=== PATIENT | male | born 1935 | race Caucasian/White ===

== ENCOUNTER 2017-06-14 07:28 | Day surgery (SDC) | payer MEDICARE, OTHER ==
[~2017-06-14] VITALS: Ht 170.2 cm; Wt 87.7 kg
[2017-06-14] MEDS ORDERED: ASPIRIN 81M81 MG/TA2 PO (07:47)
[2017-06-14] MEDS ORDERED: FLONASEALLERGY NS (07:48)
[2017-06-14] MEDS ORDERED: ZOCOR 20MG20 MG PO (07:48)
[2017-06-14] MEDS ORDERED: BENADRYL25 M2 PO (07:49)
[2017-06-14] MEDS ORDERED: HCTZ 25MG TAB25 MG PO (07:50)
[2017-06-14] MEDS ORDERED: BETIMOL 5 ML5 ML OD (07:50)
[2017-06-14] MEDS ORDERED: ALEVE 220MG220 MG PO (07:51)
[2017-06-14] MEDS ORDERED: MEGA MULTIVITAM1 TAB PO (07:51)
[2017-06-14 08:15] VITALS: BP 150/76; PULSE 61; TEMP 97.3
[2017-06-14 09:27] VITALS: BP 130/68; PULSE 61; TEMP 97.6
[2017-06-14 09:45] VITALS: BP 143/74; PULSE 58
[2017-06-14 10:00] VITALS: BP 125/74; PULSE 59
[2017-06-14 12:46] VITALS: BP 132/70; PULSE 60
== END 2017-06-14 10:15 | disposition home or self-care (01) ==
LOC: SDCO 07:28
DX: Z12.11 Encounter for screening for malignant neoplasm of colon (principal); Z86.010 Personal history of colon polyps; D12.3 Benign neoplasm of transverse colon; D12.5 Benign neoplasm of sigmoid colon; K63.5 Polyp of colon; K63.89 Other specified diseases of intestine; K57.30 Diverticulosis of large intestine without perforation or abscess without bleeding; K64.4 Residual hemorrhoidal skin tags; Z85.46 Personal history of malignant neoplasm of prostate; E78.00 Pure hypercholesterolemia, unspecified; I10 Essential (primary) hypertension
CPT/HCPCS: OP; J2250; J3010; J7030

== ENCOUNTER 2018-03-21 07:17 | Emergency (ER) | payer MEDICARE, OTHER ==
[~2018-03-21] VITALS: Ht 170.2 cm; Wt 87.7 kg
[~2018-03-21 07:17] MED LIST: ALEVE 220MG220 MG PO; ASPIRIN 81M81 MG/TA2 PO; BENADRYL25 M2 PO; BETIMOL 5 ML5 ML OD; FLONASEALLERGY NS; HCTZ 25MG TAB25 MG PO; MEGA MULTIVITAM1 TAB PO; ZOCOR 20MG20 MG PO
[2018-03-21 07:21] VITALS: TEMP 97.7
[2018-03-21 07:44] LABS: COLLECTION METHOD CLEAN CATCH
[2018-03-21 07:48] LABS: BASO # 0.1 (0.0-0.2); BASO % 0.8 % (0.0-2.0); EOS # 0.4 (0.0-0.7); EOS % 5.2 % (0-4.0); GRAN # 4.4 (1.4-6.5); GRAN % 52.7 % (42.2-75.2); HEMATOCRIT 41.2 % (42.0-52.0); HEMOGLOBIN 14.1 g/dl (13.5-18.0); LYMPH # 2.6 (1.2-3.4); LYMPH % 31.6 % (20.0-51.0); MEAN CELL VOLUME 90 fl (80.0-100.0); MEAN CORPUSCULAR HEMOGLOBIN 31 pg (27.0-31.0); MEAN CORPUSCULAR HGB CONC 34 g/dl (33.0-37.0); MEAN PLATELET VOLUME 11.5 fl (7.4-10.4); MONO # 0.8 (0.1-0.6); MONO % 9.5 % (1.7-9.3); PLATELET COUNT 91 K/mm3 (130-400); REDCELL DISTRIBUTION WIDTH-CV 12.2 % (11.5-14.5)
[2018-03-21 07:59] LABS: ALBUMIN 3.9 gm/dL (3.5-5.0); BILIRUBIN,TOTAL 0.5 mg/dL (0.0-1.0); CALCIUM 9.1 mg/dL (8.4-10.2); CREATININE, serum 0.87 mg/dL (0.66-1.25); POTASSIUM 3.7 mmol/L (3.4-5.0)
[2018-03-21 08:01] LABS: PROTHROMBIN TIME 11.3 SECONDS (9.7-12.8)
[2018-03-21 08:04] LABS: PARTIAL THROMBOPLASTIN TIME 31.6 SECONDS (26.0-37.0)
[2018-03-21] MEDS ORDERED: ZOCOR 40MG40 MG PO (08:06)
[2018-03-21] MEDS ORDERED: TIMOPTIC 0.25%-10 OU (08:06)
[2018-03-21 08:10] LABS: MUCOUS Present /lpf; PH 5 (5-8); SQUAMOUS EPITHELIAL None Seen /hpf; URINE APPEARANCE Clear; URINE BACTERIA None Seen /hpf; URINE BILIRUBIN Negative (NEGATIVE); URINE BLOOD 3+ (NEGATIVE); URINE COLOR Yellow; URINE GLUCOSE Negative (NEGATIVE); URINE KETONE Negative (NEGATIVE); URINE LEUKOCYTE ESTERASE Negative (NEGATIVE); URINE NITRATE Negative (NEGATIVE); URINE PROTEIN(semi-quant) 2+ (NEGATIVE); URINE RBC >50 /hpf; URINE UROBILINOGEN Negative (NEGATIVE)
[2018-03-21] MEDS ORDERED: MACROBID 1100 MG/CAP PO (08:32)
[2018-03-21 09:06] VITALS: BP 153/76; PULSE 62
== END 2018-03-21 09:06 | disposition home or self-care (01) ==
LOC: COL.ER 07:17
PROVIDERS: Emergency Medicine
DX: R31.9 Hematuria, unspecified (principal); Z85.46 Personal history of malignant neoplasm of prostate; Z90.79 Acquired absence of other genital organ(s); Z79.82 Long term (current) use of aspirin
CPT/HCPCS: J7040

== ENCOUNTER 2019-03-14 16:06 | Inpatient (IN) | payer MEDICARE, OTHER ==
[~2019-03-14] VITALS: Ht 167.6 cm; Wt 88.1 kg
[~2019-03-14 16:06] MED LIST changes: +MACROBID 1100 MG/CAP PO; +TIMOPTIC 0.25%-10 OD
[2019-03-14 17:43] LABS: BASO # 0.1 (0.0-0.2); BASO % 0.3 % (0.0-2.0); EOS % 0.2 % (0-4.0); GRAN # 14.1 (1.4-6.5); GRAN % 86.1 % (42.2-75.2); HEMATOCRIT 41.3 % (42.0-52.0); HEMOGLOBIN 14.5 g/dl (13.5-18.0); LYMPH % 6.3 % (20.0-51.0); MEAN CELL VOLUME 90 fl (80.0-100.0); MEAN CORPUSCULAR HEMOGLOBIN 32 pg (27.0-31.0); MEAN CORPUSCULAR HGB CONC 35 g/dl (33.0-37.0); MEAN PLATELET VOLUME 12.8 fl (7.4-10.4); MONO # 1.1 (0.1-0.6); MONO % 6.6 % (1.7-9.3); PLATELET COUNT 88 K/mm3 (130-400); RED BLOOD COUNT 4.61 M/mm3 (4.20-5.60); REDCELL DISTRIBUTION WIDTH-CV 12.3 % (11.5-14.5)
[2019-03-14 17:49] LABS: ALANINE AMINOTRANSFERASE 17 U/L (21-72); ALBUMIN 4.1 gm/dL (3.5-5.0); ALKALINE PHOSPHATASE 58 U/L (50-136); ANION GAP 10 mmol/L (7-16); AST,SGOT 31 U/L (15-37); BLOOD UREA NITROGEN 26 mg/dL (9-20); CALCIUM 9.4 mg/dL (8.4-10.2); CARBON DIOXIDE 27 mmol/L (22-30); CHLORIDE 99 mmol/L (98-107); CREATININE, serum 0.91 (0.66-1.25); GLUCOSE 117 mg/dL (74-106); POTASSIUM 3.8 mmol/L (3.4-5.0); SODIUM 136 mmol/L (137-145); TOTAL PROTEIN 7.2 gm/dL (6.4-8.2)
[2019-03-14] MEDS ORDERED: PROAIR HFA0.09 MG/AC IH (18:13)
[2019-03-14] MEDS ORDERED: B COMPLEX #11 TAB PO (18:14)
[2019-03-14] MEDS ORDERED: MASON NATURAL2000 IU PO (18:15)
[2019-03-14] MEDS ORDERED: BENADRYL25 M2 PO (18:15)
[2019-03-14] MEDS ORDERED: HCTZ 25MG TAB25 MG PO (18:16)
[2019-03-14] MEDS ORDERED: EPA FISH OIL1 SGL PO (18:16)
[2019-03-14] MEDS ORDERED: FLONASEALLERGY NS (18:16)
[2019-03-14] MEDS ORDERED: ALEVE 220MG220 MG PO (18:17)
[2019-03-14 18:18] LABS: TROPONIN-I < 0.012 ng/mL (0.000-0.035)
[2019-03-14 18:45] LABS: COLLECTION METHOD CLEAN CATCH
[2019-03-14 18:50] LABS: MUCOUS Present /lpf; PH 5 (5-8); SQUAMOUS EPITHELIAL None Seen /hpf; URINE APPEARANCE Clear; URINE BACTERIA None Seen /hpf; URINE BILIRUBIN Negative (NEGATIVE); URINE BLOOD Negative (NEGATIVE); URINE COLOR Amber; URINE GLUCOSE Negative (NEGATIVE); URINE KETONE Negative (NEGATIVE); URINE LEUKOCYTE ESTERASE Negative (NEGATIVE); URINE NITRATE Negative (NEGATIVE); URINE PROTEIN(semi-quant) 2+ (NEGATIVE); URINE UROBILINOGEN Negative (NEGATIVE)
[2019-03-14] MEDS ORDERED: DOXYCYCLINE 10100 MG PO (20:57)
[2019-03-15] VITALS (7 sets, daily range): BP systolic 125–137; BP diastolic 43–49; PULSE 71–79; TEMP 101.3–102.5
[2019-03-15] MEDS ORDERED: BENADRYL25 M2 PO (16:39)
--- NOTE | 2019-03-15 18:04 | NUR ---
Pt direct admit from home to Rm 314 per w/c with dx of fever, dehydration. Spouse at side. Wears bilat hearing aids but still very [place]. Assessment completed by TELMA Vail. IV started in L FA with #20 on 1st attempt. LR infuses at 500mL/hr. Call light within reach. Explained how to call for his meals. Dr Manuel in to assess pt.
[2019-03-15 18:34] LABS: MEAN CELL VOLUME 91 fl (80.0-100.0); MEAN CORPUSCULAR HGB CONC 34 g/dl (33.0-37.0); MEAN PLATELET VOLUME 12.2 fl (7.4-10.4); PLATELET COUNT 71 K/mm3 (130-400); RED BLOOD COUNT 4.01 M/mm3 (4.20-5.60); REDCELL DISTRIBUTION WIDTH-CV 12.5 % (11.5-14.5)
[2019-03-15 18:35] LABS: ALBUMIN 3.3 gm/dL (3.5-5.0); BILIRUBIN UNCONJUGATED 0.7 mg/dL (0.0-1.1); BILIRUBIN,DIRECT 0.2 mg/dL (0.0-0.4); BILIRUBIN,TOTAL 0.9 mg/dL (0.0-1.0); CALCIUM 8.3 mg/dL (8.4-10.2); CREATININE, serum 1.26 (0.66-1.25); INR 1.5 (0.8-3.0); POTASSIUM 3.8 mmol/L (3.4-5.0); PROTHROMBIN TIME 18.3 SECONDS (9.7-12.8); TOTAL PROTEIN 6.2 gm/dL (6.4-8.2)
[2019-03-15 18:42] LABS: HEMATOCRIT 36.6 % (42.0-52.0); HEMOGLOBIN 12.4 g/dl (13.5-18.0); MEAN CORPUSCULAR HEMOGLOBIN 31 pg (27.0-31.0)
[2019-03-15 18:51] LABS: MAGNESIUM 1.8 mg/dL (1.6-2.3)
[2019-03-15 19:09] LABS: TROPONIN-I 0.04 ng/mL (0.000-0.035)
[2019-03-15 19:29] LABS: BAND 16 % (0-10); LYMPHOCYTE 2 % (20.0-51.0); NEUTROPHILS 81 % (42.0-75.2)
[2019-03-15 19:30] LABS: PLATELET ESTIMATE NORMAL (NORMAL)
--- NOTE | 2019-03-15 20:22 | NUR ---
Pt. laying in bed at this time. Pt. is A&OX3, assessment complete. IV to lt. forearm patent, IV fluids infusing per orders. Pt. denies pain. Pt. has continued to have a fever. Giving Tylenol per orders. Pt. denies further needs, call light within reach.
[2019-03-16] VITALS (8 sets, daily range): BP systolic 92–143; BP diastolic 33–64; PULSE 58–76; TEMP 98.1–99.1
--- NOTE | 2019-03-16 05:47 | NUR ---
Pt. slept well between distrubances. Pt. remains A&OX3. Pt. afebrile at this time. Vitals stable at this time. Pt. denies pain or other needs, call light within reach.
[2019-03-16 06:46] LABS: HEMOGLOBIN 11.8 g/dl (13.5-18.0); MEAN CELL VOLUME 92 fl (80.0-100.0); MEAN CORPUSCULAR HEMOGLOBIN 32 pg (27.0-31.0); MEAN CORPUSCULAR HGB CONC 34 g/dl (33.0-37.0); PLATELET COUNT 62 K/mm3 (130-400); RED BLOOD COUNT 3.74 M/mm3 (4.20-5.60); REDCELL DISTRIBUTION WIDTH-CV 12.5 % (11.5-14.5)
[2019-03-16 06:54] LABS: HEMATOCRIT 34.3 % (42.0-52.0)
[2019-03-16 07:01] LABS: ALBUMIN 2.8 gm/dL (3.5-5.0); BILIRUBIN,TOTAL 0.7 mg/dL (0.0-1.0); CALCIUM 7.9 mg/dL (8.4-10.2); CHOLESTEROL RISK RATIO 3.8; CREATININE, serum 1.26 (0.66-1.25); POTASSIUM 3.7 mmol/L (3.4-5.0); TOTAL PROTEIN 5.5 gm/dL (6.4-8.2)
[2019-03-16 07:21] LABS: BAND 50 % (0-10); DOHLE BODIES PRESENT; LYMPHOCYTE 8 % (20.0-51.0); NEUTROPHILS 36 % (42.0-75.2); PLATELET ESTIMATE DECREASED (NORMAL); TOXIC GRANULATION PRESENT
[2019-03-16 07:23] LABS: TROPONIN-I 0.039 ng/mL (0.000-0.035)
--- NOTE | 2019-03-16 09:15 | NUR ---
Pt lying down in bed, C/O light headedness when sitting up. Denies any pain. Afebrile since last night. Breathing even and unlabored. Denies any shortness of breath. at bedside. Medications administered and morning assessment completed. Denies any needs at this time. Will continue to monitor. Call light in reach.
--- NOTE | 2019-03-16 11:15 | NUR ---
Initial visit; Patient thanked [employer] for looking in on him and offering God's blessing.
--- NOTE | 2019-03-16 13:45 | NUR ---
PT LYING IN BED, EYES CLOSED BREATHING EVEN AND UNLABORED. DENIES ANY NEEDS AT THIS TIME.
--- NOTE | 2019-03-16 14:03 | NUR ---
SW attended clinical rounds to discuss discharge planning. Patient lives independenlty at home with his . Patient's PCP is Dr Price and he obtains prescriptions from [facility] [place]. Patient does not use any DME or home health servives. Patient does have a DPOA-HC. SW does not anticipate any discharge needs.
--- NOTE | 2019-03-16 18:40 | NUR ---
IV ANTIBIOTICS GIVEN. PT DENIES ANY FEVERS, PAIN OR SHORTNESS OF BREATH. DENIES ANY OTHER NEEDS.
--- NOTE | 2019-03-16 19:15 | NUR ---
Pt eating dinner, denies any pain. Report given to Layne HOLLIS.
--- NOTE | 2019-03-16 20:35 | NUR ---
PT RESTIING IN BED WITH HOB ELEVATED TO 15 DEGREE ANGLE. PT DENIES PAIN OR DISCOMFORT AND HAS NO NEEDS AT THIS TIME. CALL LIGHT WITHIN REACH.
--- NOTE | 2019-03-17 02:17 | NUR ---
UNEVENTFUL NIGHT, PT SLEEPING/RESTING WITH NO S/S OF PAIN OR DISCOMFORT NOTED. CALL LIGHT WITHIN REACH.
[2019-03-17 03:12] VITALS: BP 126/51; PULSE 56; TEMP 98.4
[2019-03-17 07:01] LABS: BASO % 0.3 % (0.0-2.0); EOS # 0.1 (0.0-0.7); EOS % 1.6 % (0-4.0); GRAN # 3.9 (1.4-6.5); GRAN % 62.2 % (42.2-75.2); HEMOGLOBIN 11.2 g/dl (13.5-18.0); LYMPH # 1.2 (1.2-3.4); MEAN CELL VOLUME 90 fl (80.0-100.0); MEAN CORPUSCULAR HEMOGLOBIN 32 pg (27.0-31.0); MEAN CORPUSCULAR HGB CONC 35 g/dl (33.0-37.0); MEAN PLATELET VOLUME 12.1 fl (7.4-10.4); MONO % 15.9 % (1.7-9.3); PLATELET COUNT 74 K/mm3 (130-400); RED BLOOD COUNT 3.56 M/mm3 (4.20-5.60); REDCELL DISTRIBUTION WIDTH-CV 12.4 % (11.5-14.5)
[2019-03-17 07:17] LABS: ALBUMIN 2.8 gm/dL (3.5-5.0); BILIRUBIN,TOTAL 0.4 mg/dL (0.0-1.0); CREATININE, serum 0.94 (0.66-1.25); POTASSIUM 3.4 mmol/L (3.4-5.0); TOTAL PROTEIN 5.6 gm/dL (6.4-8.2)
--- NOTE | 2019-03-17 07:19 | NUR ---
UNEVENTFUL NIGHT, SLEEPING/RESTING WITH NO S/S OF PAIN OR DISCOMFORT, GAVE REPORT TO BAMBI HOLLIS.
[2019-03-17 07:50] VITALS: BP 130/56; PULSE 57; TEMP 98
--- NOTE | 2019-03-17 08:00 | NUR ---
Pt sitting up in bed AOOX4, denies any light headedness or shortness of breath. Completed morning assessment. Breathing even and unlabored, breath sounds clear. Pt corrected his medications, only takes 1,000mg of fish oil daily, updated med rec. Pt has requested shower, IV on standby and site wrapped up. Pt steady and denies any dizziness. Will contiue to monitor.
[2019-03-17 09:42] LABS: LYME DISEASE ANTIBODIES Negative (Negative)
--- NOTE | 2019-03-17 10:45 | NUR ---
ALL DICHSARGE PAPERWORK GIVEN TO PT. ALL QUESTIONS ASKED AND ANSWERED. INT REMOVED, CATHETER TIP INTACT. NO REDNESS OR SWELLING NOTED. ESCORTED OUT VIA WHEELCHAIR BY VIA [facility] [place] STAFF.
== END 2019-03-17 11:00 | disposition home or self-care (01) | DRG 871 ==
LOC: COL.ER 16:06 → MEDICAL 03-15 16:20
PROVIDERS: Emergency Medicine; Internal Medicine Infectious Disease; ADMIT Hospitalist
DX: A41.9 Sepsis, unspecified organism (principal); I21.A1 Myocardial infarction type 2; N17.9 Acute kidney failure, unspecified; A93.8 Other specified arthropod-borne viral fevers; I10 Essential (primary) hypertension; E78.5 Hyperlipidemia, unspecified; H40.9 Unspecified glaucoma; D69.6 Thrombocytopenia, unspecified; D64.9 Anemia, unspecified; Z85.46 Personal history of malignant neoplasm of prostate; Z87.891 Personal history of nicotine dependence
CPT/HCPCS: 99222-AI; 99231-AI; 99239; J0696; J1650; J1885; J2405; J7030; J7120

== ENCOUNTER 2022-02-28 21:29 | Emergency (ER) | payer MEDICARE, OTHER ==
[~2022-02-28] VITALS: Ht 177.8 cm; Wt 90.9 kg
[~2022-02-28 21:29] MED LIST changes: +B COMPLEX #11 TAB PO; +DOXYCYCLINE 10100 MG PO; +EPA FISH OIL1 SGL PO; +MASON NATURAL2000 IU PO; +PROAIR HFA0.09 MG/AC IH
[2022-02-28 22:45] LABS: BASO # 0.1 K/mm3 (0.0-0.2); BASO % 0.7 % (0.0-2.0); EOS # 0.5 K/mm3 (0.0-0.7); EOS % 5.6 % (0.0-4.0); GRAN # 4.7 K/mm3 (1.4-6.5); GRAN % 57.5 % (42.2-75.2); HEMOGLOBIN 12.3 g/dl (13.5-18.0); LYMPH # 2.1 K/mm3 (1.2-3.4); MEAN CELL VOLUME 90 fl (80.0-100.0); MEAN CORPUSCULAR HEMOGLOBIN 31 pg (27-31); MEAN CORPUSCULAR HGB CONC 35 g/dl (33.0-37.0); MEAN PLATELET VOLUME 11.9 fl (7.4-10.4); MONO # 0.9 K/mm3 (0.1-0.6); MONO % 10.8 % (1.7-9.3); PLATELET COUNT 90 K/mm3 (130-400); RED BLOOD COUNT 3.92 M/mm3 (4.20-5.60); REDCELL DISTRIBUTION WIDTH-CV 12.5 % (11.5-14.5)
[2022-02-28 22:49] VITALS: TEMP 98.5
[2022-02-28 22:52] LABS: HEMATOCRIT 35.1 % (42.0-52.0)
[2022-02-28 23:00] LABS: ALBUMIN 3.7 gm/dL (3.4-4.8); BILIRUBIN,TOTAL 0.7 mg/dL (0.2-1.2); CALCIUM 9.1 mg/dL (8.4-10.2); POTASSIUM 3.4 mmol/L (3.5-4.5); TOTAL PROTEIN 6.2 gm/dL (6.2-8.1)
[2022-02-28 23:03] LABS: INR 1.2 (0.8-3.0); PROTHROMBIN TIME 13.3 SECONDS (9.7-12.8)
[2022-02-28 23:06] LABS: PARTIAL THROMBOPLASTIN TIME 29.5 SECONDS (26.0-37.0)
[2022-02-28 23:16] LABS: CREATININE, serum 0.94 mg/dL (0.72-1.25)
[2022-03-01 00:13] VITALS: BP 138/69; PULSE 58
== END 2022-03-01 00:13 | disposition short-term general hospital (02) ==
LOC: COL.ER 21:29
PROVIDERS: Personal Emergency Response Attendant
DX: S06.6X9A Traumatic subarachnoid hemorrhage with loss of consciousness of unspecified duration, initial encounter (principal); W18.30XA Fall on same level, unspecified, initial encounter
CPT/HCPCS: J2405

== ENCOUNTER 2022-04-30 09:00 | Day surgery (SDC) | payer MEDICARE, OTHER ==
[~2022-04-30] VITALS: Ht 177.8 cm; Wt 87.0 kg
[2022-04-30] MEDS ORDERED: NAPROSYN 2250 MG/TAB PO (09:34)
[2022-04-30] MEDS ORDERED: ZOCOR 80MG80 MG PO (09:34)
[2022-04-30] MEDS ORDERED: MIRALAX PA17 GM/Dose PO (09:34)
[2022-04-30] MEDS ORDERED: KRILL OIL 5001 EACH PO (09:35)
[2022-04-30] MEDS ORDERED: COLACE 100100 MG/CAP PO (09:35)
[2022-04-30] MEDS ORDERED: NATURAL MAGNES200 MG PO (09:35)
[2022-04-30] MEDS ORDERED: NATURAL IRON65 MG PO (09:36)
[2022-04-30 09:48] VITALS: BP 143/64; PULSE 46; TEMP 97.7
[2022-04-30] MEDS ORDERED: NORCO 325 MG-51 TAB PO (13:06)
[2022-04-30 13:15] VITALS: BP 123/62; PULSE 47; TEMP 97.1
[2022-04-30 13:30] VITALS: BP 148/64; PULSE 45
[2022-04-30 13:45] VITALS: BP 148/64; PULSE 45
--- NOTE | 2022-04-30 14:09 | NUR ---
1315: Patient arrived back into [facility] from [place]. Patient is drowsy but arousable to vocal stimulation. Vital signs stable on room air. Report received from TELMA Acosta and JAMES Whitman. Patient requesting blueberry muffins and water. at bedside. Denies pain or nausea. Call light left within reach. 1330: Patient vitally stable. Tolerating food and drink well. Denies pain or nausea. Patient requesting additional muffins. Patient alert and awake. 1345: Patient meets discharge criteria. Went through discharge instructions with patient and . Patient got dressed with assistance from . 1350: Escorted to patient entrance via wheelchair. Patient got into personal vehicle unassisted and left in the care of his .
== END 2022-04-30 14:10 | disposition home or self-care (01) ==
LOC: SDCO 09:00
DX: K40.90 Unilateral inguinal hernia, without obstruction or gangrene, not specified as recurrent (principal); Z79.899 Other long term (current) drug therapy; Z98.890 Other specified postprocedural states
CPT/HCPCS: C1781; J0690; J1100; J2704; J2795; J7120

== ENCOUNTER 2022-05-09 19:39 | Emergency (ER) | payer MEDICARE, OTHER ==
[~2022-05-09] VITALS: Ht 165.1 cm; Wt 84.1 kg
[~2022-05-09 19:39] MED LIST changes: +COLACE 100100 MG/CAP PO; +KRILL OIL 5001 EACH PO; +MIRALAX PA17 GM/Dose PO; +NAPROSYN 2250 MG/TAB PO; +NATURAL IRON65 MG PO; +NATURAL MAGNES200 MG PO; +NORCO 325 MG-51 TAB PO; +ZOCOR 80MG80 MG PO
[2022-05-09 19:40] VITALS: TEMP 97.6
[2022-05-09 20:09] LABS: BASO # 0.1 K/mm3 (0.0-0.2); BASO % 0.8 % (0.0-2.0); EOS # 0.5 K/mm3 (0.0-0.7); EOS % 5.8 % (0.0-4.0); GRAN # 5.2 K/mm3 (1.4-6.5); GRAN % 57.5 % (42.2-75.2); HEMOGLOBIN 12.3 g/dl (13.5-18.0); LYMPH # 2.2 K/mm3 (1.2-3.4); LYMPH % 24.4 % (20.0-51.0); MEAN CELL VOLUME 91 fl (80.0-100.0); MEAN CORPUSCULAR HEMOGLOBIN 32 pg (27-31); MEAN CORPUSCULAR HGB CONC 35 g/dl (33.0-37.0); MEAN PLATELET VOLUME 11.1 fl (7.4-10.4); MONO % 10.9 % (1.7-9.3); PLATELET COUNT 120 K/mm3 (130-400); REDCELL DISTRIBUTION WIDTH-CV 12.6 % (11.5-14.5)
[2022-05-09 20:10] LABS: HEMATOCRIT 35.3 % (42.0-52.0)
[2022-05-09 20:13] LABS: INR 1.2 (0.8-3.0); PROTHROMBIN TIME 13.4 SECONDS (9.7-12.8)
[2022-05-09 20:15] LABS: PARTIAL THROMBOPLASTIN TIME 30.4 SECONDS (26.0-37.0)
[2022-05-09 20:19] LABS: ALBUMIN 3.5 gm/dL (3.4-4.8); BILIRUBIN,TOTAL 0.6 mg/dL (0.2-1.2); CALCIUM 9.3 mg/dL (8.4-10.2); CREATININE, serum 0.97 mg/dL (0.72-1.25); POTASSIUM 3.7 mmol/L (3.5-4.5); TOTAL PROTEIN 6.6 gm/dL (6.2-8.1)
[2022-05-09 20:25] LABS: TROPONIN-I 0.018 ng/mL (0.00-0.033)
[2022-05-09] MEDS ORDERED: AMOXICILLIN 8751 TAB (21:00)
[2022-05-09 21:19] VITALS: BP 152/80; PULSE 50
== END 2022-05-09 21:36 | disposition home or self-care (01) ==
LOC: COL.ER 19:39
PROVIDERS: Family Medicine
DX: H83.09 Labyrinthitis, unspecified ear (principal); R00.1 Bradycardia, unspecified; Z28.310 Unvaccinated for COVID-19